=== PATIENT | female | born 1955 | race American Indian/Alaskan Native ===

== ENCOUNTER 2021-02-16 01:05 | Emergency (ER) | payer MEDICARE, OTHER ==
[2021-02-16] MEDS ORDERED: SODIUM CHLORIDE 0.9% 1000 ML 1,000 ML IV ONE ×3 (01:45→10:12)
[2021-02-16] MEDS ORDERED: ONDANSETRON 4 MG/2 ML INJ IV ONE (01:45)
[2021-02-16] MEDS ORDERED: HYDROmorphone 1 MG/1 ML INJ IV ONE ×2 (01:45→07:04)
--- NOTE | 2021-02-16 01:49 | Emergency Department Report ---
HPI <TITA KULKARNI - Last Filed: 02/16/21 10:10> - HPI HPI: 66-year-old female with history of migraine headaches and hyperlipidemia as well as left eye blindness presents complaining of approximately 2 days of lower abdominal pain which is bilateral and wraps around to the back. She says the pain is constant but intermittently gets much worse. When it first started it was associated with nausea and few episodes of vomiting but this resolved. Since then it has been intermittent but got significantly worse while on a plane from [place]. After landing the patient was immediately transported to the emergency department. Patient reports that she tried taking Pepto-Bismol and ibuprofen without significant relief when the pain first started. There are no known aggravating or alleviating factors. She denies any associated fever/chills, congestion, cough, sore throat, neck pain, chest pain, shortness of breath, focal weakness, sensory changes, dysuria, or any other complaints. She reports her last bowel movement was 2 days ago just before the symptoms started. She is fully vaccinated against COVID-19. <ADEEL LUNA - Last Filed: 02/18/21 09:11> - General Chief Complaint: Abdominal Pain Time Seen by Provider: 02/16/21 01:26 ED Past Medical Hx - Past Medical History Hx Headaches / Migraines: Yes Additional medical history: L eye blindness - Surgical History Past Surgical History?: No - Social History Smoking Status: Unknown if ever smoked Substance Use Type: None <ADEEL LUNA - Last Filed: 02/18/21 09:11> ED Review of Systems ROS: Stated complaint: ABDOMINAL PAIN WITH NAUSEA AND VOMITING. Other details as noted in HPI <TITA KULKARNI - Last Filed: 02/16/21 10:10> ROS: Stated complaint: ABDOMINAL PAIN WITH NAUSEA AND VOMITING. Other details as noted in HPI Constitutional: denies: chills, fever Eyes: denies: eye pain, vision change ENT: denies: throat pain, congestion Respiratory: denies: cough, shortness of breath Cardiovascular: denies: chest pain, palpitations, syncope Gastrointestinal: abdominal pain, nausea, vomiting. denies: diarrhea Genitourinary: denies: dysuria, frequency Musculoskeletal: back pain. denies: arthralgia Skin: denies: rash, lesions Neurological: denies: headache, weakness, numbness Psychiatric: denies: anxiety <ADEEL LUNA - Last Filed: 02/18/21 09:11> Physical Exam - Physical Exam Vital Signs: Vital Signs 02/16/21 02/16/21 02/16/21 01:27 01:46 02:00 Temperature Pulse Rate 101 H 94 H 95 H Respiratory 25 H 21 26 H Rate Blood Pressure 119/77 124/79 Blood Pressure [Right] O2 Sat by Pulse 97 Oximetry 02/16/21 02/16/21 02/16/21 02:07 02:16 02:21 Temperature Pulse Rate 99 H Respiratory 20 25 H 20 Rate Blood Pressure 119/76 Blood Pressure [Right] O2 Sat by Pulse 96 95 Oximetry 02/16/21 02/16/21 02/16/21 02:30 02:46 03:00 Temperature Pulse Rate 99 H 98 H 106 H Respiratory 30 H 33 H 28 H Rate Blood Pressure 113/69 108/75 111/73 Blood Pressure [Right] O2 Sat by Pulse 94 93 94 Oximetry 02/16/21 02/16/21 02/16/21 03:16 03:30 03:46 Temperature Pulse Rate 99 H 104 H 108 H Respiratory 36 H 25 H 32 H Rate Blood Pressure 114/78 117/65 110/63 Blood Pressure [Right] O2 Sat by Pulse 94 94 97 Oximetry 02/16/21 02/16/21 02/16/21 04:00 04:16 04:30 Temperature Pulse Rate 102 H 99 H 97 H Respiratory 31 H 22 17 Rate Blood Pressure 106/63 111/64 116/62 Blood Pressure [Right] O2 Sat by Pulse 96 95 96 Oximetry 02/16/21 02/16/21 02/16/21 04:46 05:00 05:39 Temperature Pulse Rate 95 H 102 H Respiratory 19 32 H 26 H Rate Blood Pressure 113/62 98/61 Blood Pressure [Right] O2 Sat by Pulse 97 94 Oximetry 02/16/21 02/16/21 02/16/21 05:46 06:00 06:16 Temperature Pulse Rate 103 H 86 Respiratory 20 24 27 H Rate Blood Pressure 116/68 102/61 98/61 Blood Pressure [Right] O2 Sat by Pulse 94 91 94 Oximetry 02/16/21 02/16/21 02/16/21 06:30 06:46 06:54 Temperature 98.6 F Pulse Rate 101 H 106 H Respiratory 24 19 20 Rate Blood Pressure 98/61 98/61 Blood Pressure 102/61 [Right] O2 Sat by Pulse 93 94 94 Oximetry <TITA KULKARNI - Last Filed: 02/16/21 10:10> - Physical Exam Physical Exam: GENERAL: Well developed and well nourished. No acute distress HEAD: Normocephalic. No obvious signs of trauma. ENT: Very dry mucous membranes. EYES: Extraocular movements are intact. Right pupil is round and reactive to light. Left eye is unreactive. NECK: Supple. Full ROM is intact. Trachea is midline. LUNGS: Nonlabored breathing. Equal chest rise bilaterally. Clear to auscultation bilaterally. CARDIOVASCULAR: Regular rate and rhythm. No murmurs or rubs. VASCULAR: Cap refill < 2 seconds. Trace edema bilaterally. ABDOMEN: Abdomen is slightly distended but soft. There is bilateral lower quadrant tenderness with voluntary guarding. There is no rebound tenderness. SKIN: Skin is warm and dry. No rashes appreciated. NEURO: Patient is awake, alert, and oriented. moisture meter operator II-XII grossly intact. No foca l deficits. Normal motor and sensory exam throughout. Normal speech. MUSCULOSKELETAL: No obvious deformities. No significant tenderness. Normal ROM throughout. BACK/SPINE: No costovertebral angle tenderness. <ADEEL LUNA - Last Filed: 02/18/21 09:11> ED Course Vital Signs 02/16/21 02/16/21 02/16/21 01:27 01:46 02:00 Temperature Pulse Rate 101 H 94 H 95 H Respiratory 25 H 21 26 H Rate Blood Pressure 119/77 124/79 Blood Pressure [Right] O2 Sat by Pulse 97 Oximetry 02/16/21 02/16/21 02/16/21 02:07 02:16 02:21 Temperature Pulse Rate 99 H Respiratory 20 25 H 20 Rate Blood Pressure 119/76 Blood Pressure [Right] O2 Sat by Pulse 96 95 Oximetry 02/16/21 02/16/21 02/16/21 02:30 02:46 03:00 Temperature Pulse Rate 99 H 98 H 106 H Respiratory 30 H 33 H 28 H Rate Blood Pressure 113/69 108/75 111/73 Blood Pressure [Right] O2 Sat by Pulse 94 93 94 Oximetry 02/16/21 02/16/21 02/16/21 03:16 03:30 03:46 Temperature Pulse Rate 99 H 104 H 108 H Respiratory 36 H 25 H 32 H Rate Blood Pressure 114/78 117/65 110/63 Blood Pressure [Right] O2 Sat by Pulse 94 94 97 Oximetry 02/16/21 02/16/21 02/16/21 04:00 04:16 04:30 Temperature Pulse Rate 102 H 99 H 97 H Respiratory 31 H 22 17 Rate Blood Pressure 106/63 111/64 116/62 Blood Pressure [Right] O2 Sat by Pulse 96 95 96 Oximetry 02/16/21 02/16/21 02/16/21 04:46 05:00 05:39 Temperature Pulse Rate 95 H 102 H Respiratory 19 32 H 26 H Rate Blood Pressure 113/62 98/61 Blood Pressure [Right] O2 Sat by Pulse 97 94 Oximetry 02/16/21 02/16/21 02/16/21 05:46 06:00 06:16 Temperature Pulse Rate 103 H 86 Respiratory 20 24 27 H Rate Blood Pressure 116/68 102/61 98/61 Blood Pressure [Right] O2 Sat by Pulse 94 91 94 Oximetry 02/16/21 02/16/21 02/16/21 06:30 06:46 06:54 Temperature 98.6 F Pulse Rate 101 H 106 H Respiratory 24 19 20 Rate Blood Pressure 98/61 98/61 Blood Pressure 102/61 [Right] O2 Sat by Pulse 93 94 94 Oximetry - Reevaluation(s) Reevaluation #1: 02/16/21 10:10 Patient has been accepted by [facility]. Bed assigned for [facility]. Dr Gonzalez will be informed - Consultations Consultation #1: 02/16/21 07:15 Received call back from [facility] physician Dr. Chavez at this time. She will speak to surgeon and call back. Patient's acceptance pending 02/16/21 07:45 received call back from [facility] that beds are tight. There may be a bed at [facility]. Patient has been accepted by Dr. Estevez pending bed availability. I informed her that patient prefers to go to a [facility] facility. She recommends that if no bed is available in 2 hours then patient should be admitted here 02/16/21 07:45 page placed to surgeon catheterization laboratory technician Dr. Gonzalez 02/16/21 07:[address] Gonzalez she could probably take the patient to the operating room right away however due to patient's preference she will wait till she hears back after 2-hour wait From [facility] to see if a [facility] bed is available. She will be placed on the schedule if she stays. Pt wants to wait to hear back from [facility], informed of risk of delay i care/surgery <TITA KULKARNI - Last Filed: 02/16/21 10:10> ED Medical Decision Making - Lab Data Result diagrams: 02/16/21 01:58 02/16/21 01:58 <TITA KULKARNI - Last Filed: 02/16/21 10:10> - Lab Data Result diagrams: 02/16/21 01:58 02/16/21 01:58 Lab Results 02/16/21 02/16/21 02/16/21 Range/Units 01:58 01:58 01:58 WBC 11.6 H (4.5-11.0) K/mm3 RBC 4.75 (3.65-5.03) M/mm3 Hgb 12.7 (10.1-14.3) gm/dl Hct 40.0 (30.3-42.9) % MCV 84 (79-97) fl MCH 27 L (28-32) pg MCHC 32 (30-34) % RDW 13.9 (13.2-15.2) % Plt Count 248 (140-440) K/mm3 Lymph % (Auto) 5.6 L (13.4-35.0) % Davison % (Auto) 5.4 (0.0-7.3) % Eos % (Auto) 0.0 (0.0-4.3) % Baso % (Auto) 0.1 (0.0-1.8) % Lymph # (Auto) 0.7 L (1.2-5.4) K/mm3 Davison # (Auto) 0.6 (0.0-0.8) K/mm3 Eos # (Auto) 0.0 (0.0-0.4) K/mm3 Baso # (Auto) 0.0 (0.0-0.1) K/mm3 Seg Neutrophils % 88.9 H (40.0-70.0) % Seg Neutrophils # 10.3 H (1.8-7.7) K/mm3 PT 14.8 (12.2-14.9) Sec. INR 1.05 (0.87-1.13) APTT 28.6 (24.2-36.6) Sec. Sodium 135 L (137-145) mmol/L Potassium 3.9 (3.6-5.0) mmol/L Chloride 96.4 L (98-107) mmol/L Carbon Dioxide 25 (22-30) mmol/L Anion Gap 18 mmol/L BUN 12 (7-17) mg/dL Creatinine 0.8 (0.6-1.2) mg/dL Estimated GFR > 60 ml/min BUN/Creatinine Ratio 15 % Glucose 144 H (65-100) mg/dL Calcium 9.3 (8.4-10.2) mg/dL Magnesium 1.80 (1.7-2.3) mg/dL Total Bilirubin 0.80 (0.1-1.2) mg/dL Direct Bilirubin < 0.2 (0-0.2) mg/dL Indirect Bilirubin 0.6 mg/dL AST 16 (5-40) units/L ALT 21 (7-56) units/L Alkaline Phosphatase 74 (35-129) units/L Troponin T (0.00-0.029) ng/mL Total Protein 7.7 (6.3-8.2) g/dL Albumin 4.1 (3.9-5) g/dL Albumin/Globulin Ratio 1.1 % Lipase 31 (13-60) units/L Urine Color (Yellow) Urine Turbidity (Clear) Urine pH (5.0-7.0) Ur Specific Hector (1.003-1.030) Urine Protein (Negative) mg/dL Urine Glucose (UA) (Negative) mg/dL Urine Ketones (Negative) mg/dL Urine Blood (Negative) Urine Nitrite (Negative) Urine Bilirubin (Negative) Urine Urobilinogen (<2.0) mg/dL Ur Leukocyte Esterase (Negative) Urine WBC (Auto) (0.0-6.0) /HPF Urine RBC (Auto) (0.0-6.0) /HPF U Epithel Cells (Auto) (0-13.0) /HPF Urine Mucus /HPF 02/16/21 02/16/21 Range/Units 01:58 Unknown WBC (4.5-11.0) K/mm3 RBC (3.65-5.03) M/mm3 Hgb (10.1-14.3) gm/dl Hct (30.3-42.9) % MCV (79-97) fl MCH (28-32) pg MCHC (30-34) % RDW (13.2-15.2) % Plt Count (140-440) K/mm3 Lymph % (Auto) (13.4-35.0) % Davison % (Auto) (0.0-7.3) % Eos % (Auto) (0.0-4.3) % Baso % (Auto) (0.0-1.8) % Lymph # (Auto) (1.2-5.4) K/mm3 Davison # (Auto) (0.0-0.8) K/mm3 Eos # (Auto) (0.0-0.4) K/mm3 Baso # (Auto) (0.0-0.1) K/mm3 Seg Neutrophils % (40.0-70.0) % Seg Neutrophils # (1.8-7.7) K/mm3 PT (12.2-14.9) Sec. INR (0.87-1.13) APTT (24.2-36.6) Sec. Sodium (137-145) mmol/L Potassium (3.6-5.0) mmol/L Chloride (98-107) mmol/L Carbon Dioxide (22-30) mmol/L Anion Gap mmol/L BUN (7-17) mg/dL Creatinine (0.6-1.2) mg/dL Estimated GFR ml/min BUN/Creatinine Ratio % Glucose (65-100) mg/dL Calcium (8.4-10.2) mg/dL Magnesium (1.7-2.3) mg/dL Total Bilirubin (0.1-1.2) mg/dL Direct Bilirubin (0-0.2) mg/dL Indirect Bilirubin mg/dL AST (5-40) units/L ALT (7-56) units/L Alkaline Phosphatase (35-129) units/L Troponin T < 0.010 (0.00-0.029) ng/mL Total Protein (6.3-8.2) g/dL Albumin (3.9-5) g/dL Albumin/Globulin Ratio % Lipase (13-60) units/L Urine Color Yellow (Yellow) Urine Turbidity Clear (Clear) Urine pH 5.0 (5.0-7.0) Ur Specific Hector > 1.030 H (1.003-1.030) Urine Protein <15 mg/dl (Negative) mg/dL Urine Glucose (UA) Neg (Negative) mg/dL Urine Ketones Neg (Negative) mg/dL Urine Blood Neg (Negative) Urine Nitrite Neg (Negative) Urine Bilirubin Neg (Negative) Urine Urobilinogen < 2.0 (<2.0) mg/dL Ur Leukocyte Esterase Neg (Negative) Urine WBC (Auto) 1.0 (0.0-6.0) /HPF Urine RBC (Auto) 1.0 (0.0-6.0) /HPF U Epithel Cells (Auto) 1.0 (0-13.0) /HPF Urine Mucus Few /HPF - EKG Data -: EKG Interpreted by Sc - EKG Data 02/16/21 02:46 Sinus tachycardia. Normal axis. Normal intervals. Occasional PVCs. There are diffuse T wave inversions noted throughout. No significant ST segment abnormalities. - Medical Decision Making 66-year-old female with past medical history significant for migraines and hyperlipidemia presents complaining of 2 days of bilateral lower abdominal pain which wraps around to the back. Was associated with some nausea and vomiting when it first began but her symptoms now consist only of lower abdominal pain. Initial assessment she is afebrile and with normal vital signs. She is in no acute distress. Physical examination reveals very dry mucous membranes. The abdomen is slightly distended but soft with tenderness of the bilateral lower abdominal quadrants with voluntary but no involuntary guarding or rebound tenderness. We will perform broad work-up with a full set of labs, EKG, and CT of the abdomen pelvis to assess for evidence of pancreatitis, appendicitis, colitis, diverticulitis, kidney stone, or other significant finding. We will give 1 L of IV fluids, Dilaudid, and Zofran and reassess. EKG shows diffuse T wave inversions and occasional PVCs. Troponin has been added. On repeat assessment at 3:30 AM, the patient reports that she feels much improved. Vitals are stable. Diagnostics are still pending Labs reveal no significant leukocytosis or anemia. Kidney function is normal and there are no significant electrolyte abnormalities. Coags are normal. Initial troponin is negative. Chest x-ray reveals no acute abnormalities. CT of the abdomen pelvis reveals findings consistent with acute appendicitis with multiple appendicoliths. Also found to have large uterine fibroids. Zosyn has been ordered. When I went in the room to discuss with the patient and her the diagnosis they told me that they would like to obtain a second opinion. The new oncoming doctor, Dr. Kulkarni, came in the room and was looped into the conversation since she will be assuming care of the patient. At this point they revealed that she is in fact a patient of [facility]. A call has been placed to [facility] and Dr. Kulkarni has assumed care. <ADEEL LUNA - Last Filed: 02/18/21 09:11> Critical care attestation.: If time is entered above; I have spent that time in minutes in the direct care of this critically ill patient, excluding procedure time. <TITA KULKARNI - Last Filed: 02/16/21 10:10> Critical care attestation.: If time is entered above; I have spent that time in minutes in the direct care of this critically ill patient, excluding procedure time. <ADEEL LUNA - Last Filed: 02/18/21 09:11> ED Disposition Is pt being admited?: No Time of Disposition: 10:12 ([facility] to [facility] pending) <TITA KULKARNI - Last Filed: 02/16/21 10:10> Is pt being admited?: No <ADEEL LUNA - Last Filed: 02/18/21 09:11> Clinical Impression: Appendicitis, acute Disposition: 02 SHORT TERM HOSPITAL Instructions: Abdominal Pain (ED)
[2021-02-16 02:43] LABS: Alanine Aminotransferase 21 units/L (7-56); Albumin 4.1 g/dL (3.9-5); BUN/Creatinine Ratio 15; Blood Urea Nitrogen 12 mg/dL (7-17); Calcium 9.3 mg/dL (8.4-10.2); Hemolysis Index 8
--- NOTE | 2021-02-16 02:45 | XRay Report ---
CHEST 1 VIEW 02/16/2021 2:26 AM INDICATION / CLINICAL INFORMATION: Abdominal pain. COMPARISON: None available. FINDINGS: SUPPORT DEVICES: None. HEART / MEDIASTINUM: The heart size and pulmonary vasculature are normal for technique. LUNGS / PLEURA: No significant pulmonary or pleural abnormality. No pneumothorax. ADDITIONAL FINDINGS: The visualized upper abdomen is unremarkable. IMPRESSION: No acute findings. Signer Name: Alfie Yang MD Signed: 02/16/2021 2:41 AM Workstation Name: [id number]
[2021-02-16 02:46] LABS: Bilirubin,Direct < 0.2 mg/dL (0-0.2)
[2021-02-16 02:48] LABS: Basophils % (Auto) 0.1 % (0.0-1.8); Hemoglobin 12.7 gm/dl (10.1-14.3); Lymphocytes # (Auto) 0.7 K/mm3 (1.2-5.4); Lymphocytes % (Auto) 5.6 % (13.4-35.0); Mean Corpuscular HGB Conc 32 % (30-34); Mean Corpuscular Volume 84 fl (79-97); Monocytes # (Auto) 0.6 K/mm3 (0.0-0.8); Monocytes % (Auto) 5.4 % (0.0-7.3); Platelet Count 248 K/mm3 (140-440); Red Blood Count 4.75 M/mm3 (3.65-5.03); Red Cell Distribution Width 13.9 % (13.2-15.2)
[2021-02-16 02:57] LABS: INR 1.05 (0.87-1.13)
[2021-02-16 02:58] LABS: Partial Thromboplastin Time 28.6 Sec. (24.2-36.6)
--- NOTE | 2021-02-16 06:00 | Cat Scan Report ---
CT OF THE ABDOMEN AND PELVIS WITH INTRAVENOUS CONTRAST INDICATION / CLINICAL INFORMATION: Lower abdominal pain for 2 days. TECHNIQUE: The patient received 100 cc Omnipaque [address] scans at this location are performed using CT dose reduction for ALARA by means of automated exposure control. COMPARISON: None available. FINDINGS: ABDOMEN: There are multiple small stones in the gallbladder. The gallbladder is normal in size withou t wall thickening or bile duct dilatation. The liver, spleen, pancreas, adrenal glands, kidneys and b owel demonstrate no significant abnormality. There are mild atherosclerotic calcifications involving the aorta without aneurysm. No adenopathy is present. There is mild right basilar atelectasis. PELVIS: The appendix is significantly dilated and thick-walled and contains increased fluid. The maxi mal transverse diameter is approximately 1.5 cm. There are multiple calcified fecaliths, one of which is causing obstruction of the appendix near its base. There is mild inflammation in the periappendic eal fat. There is a mild localized adynamic ileus. There is a small amount of fluid in the right para colic gutter. No larger drainable fluid collection is seen. The distal ureters and urinary bladder are normal. There appears to be a large fibroid occupying the majority of the uterine body and fundus, measuring approximately 5 cm. I do not identify an adnexal m ass. There is no evidence of diverticulitis. No evidence of hernia is seen. There are moderate degene rative changes at the lumbosacral junction. IMPRESSION: 1. Acute appendicitis. Multiple appendicoliths. Small amount of fluid in the right inferior paracolic gutter without drainable fluid collection. 2. Cholelithiasis. 3. 5 cm uterine fibroid. Signer Name: Alfie Yang MD Signed: 02/16/2021 5:56 AM Workstation Name: [id number]
[2021-02-16] MEDS ORDERED: PIPERACIL/TAZOBACTA 4.5/NS 100 4.5 GM/100 ML VIAL IV ONE (06:19)
[2021-02-16 06:23] LABS: Bilirubin,Urine NEG (Negative); Blood,Urine NEG (Negative); Color,Urine Yellow (Yellow); Mucus,Urine FEW /HPF; Protein,Urine <15 mg/dL mg/dL (Negative); Urobilinogen,Urine < 2.0 mg/dL (<2.0)
[2021-02-16] MEDS ORDERED: diphenhydrAMINE 50 MG/ML VIAL ONE (07:26)
[2021-02-16] MEDS ORDERED: HYDROmorphone 1 MG/1 ML INJ ONE (11:31)
--- NOTE | 2021-02-16 12:16 | Electrocardiograph Report ---
[facility] Test Date: 2021-02-16 Test Time: 02:38:13 Pat Name: KIMBERLY MICHAEL Department: Room: Gender: F Treatment Technician: CHAUNCEY : 1955 Requested By: ADEEL LUNA Order Number: [id number] Reading MD: Roger Pedraza Measurements Intervals [place] Rate: 101 P: 45 MO: 152 QRS: 31 QRSD: 72 T: 251 QT: 334 QTc: 439 Interpretive Statements Sinus tachycardia Ventricular premature complex Low voltage, precordial leads Abnormal T, consider ischemia, diffuse leads No previous ECG available for comparison Electronically Signed On 02-16-2021 12:16:25 EST by Roger Pedraza
[2021-02-16 12:28] VITALS: BP 106/66
== END 2021-02-16 12:49 | disposition short-term general hospital (02) ==
LOC: ED 01:05
DX: K37 Unspecified appendicitis (principal); G43.909 Migraine, unspecified, not intractable, without status migrainosus; H54.7 Unspecified visual loss
CPT/HCPCS: 36415; 71045; 74177; 80048; 80076; 81001; 83690; 83735; 84484; 85025; 85610; 85730; 87040; 87086; 93005; 96361; 96365; 96375; 96376; 99285; J1170; J1200; J2405; J2543; J7030; Q9967; Q0162